=== PATIENT | female | born 1965 | race African-American/Black ===

== ENCOUNTER 2016-05-03 19:07 | Emergency (ER) | payer SELFPAY ==
[~2016-05-03] VITALS: Ht 152.4 cm; Wt 86.4 kg
[~2016-05-03 19:07] MED LIST: ALBUTEROL SULF8.5 GM IH; AMARYL2 MG PO; AUGMENTIN875 MG PO; COGENTIN0.5 MG PO; Flovent 110 mcg IH; Glucophage PO; HYDROCHLOROTH12.5 M3 PO; HYDROCHLOROTHIA25 MG PO; LANTUS 3 M100 UNITS/ SC; LISINOPRIL10 MG PO; LISINOPRIL20 MG PO; LORTAB PO; NIFEDICAL XL60 MG PO; NO HOME MEDS; NOVOLOG PE100 UNITS/ SC; Procardia XL,Adalat PO; RISPERDAL M-TAB1 MG PO; TEGretol PO; Wellbutrin XL PO; ZITHROMAX Z-PA250 MG PO; [UNRECOGNIZED DRUG - REMARK]
[2016-05-03 19:12] VITALS: BP 120/73
[2016-05-03] MEDS ORDERED: MOTRIN800 MG PO (23:01)
== END 2016-05-03 23:25 | disposition home or self-care (01) ==
LOC: EME 19:07
DX: S13.4XXA Sprain of ligaments of cervical spine, initial encounter (principal); M54.9 Dorsalgia, unspecified; V73.6XXA Passenger on bus injured in collision with car, pick-up truck or van in traffic accident, initial encounter
CPT/HCPCS: 72040; 72070; 99281; 99284

== ENCOUNTER 2016-11-23 17:49 | Emergency (ER) | payer OTHER ==
[~2016-11-23] VITALS: Ht 152.4 cm; Wt 91.2 kg
[~2016-11-23 17:49] MED LIST changes: +MOTRIN800 MG PO
[2016-11-23 21:55] LABS: POINT-OF-CARE METER ID UU14100415
[2016-11-23] MEDS ORDERED: HYDROCHLOROTH12.5 M3 PO (22:07)
[2016-11-23] MEDS ORDERED: LISINOPRIL40 MG PO (22:07)
[2016-11-23 22:23] VITALS: BP 209/112
== END 2016-11-23 22:25 | disposition home or self-care (01) ==
LOC: EXP 17:49 → EME 17:49 → EXP 22:25
PROVIDERS: Physician Assistant
DX: I10 Essential (primary) hypertension (principal); E11.9 Type 2 diabetes mellitus without complications; J44.9 Chronic obstructive pulmonary disease, unspecified; F17.200 Nicotine dependence, unspecified, uncomplicated
CPT/HCPCS: 82948; 99281; 99283